=== PATIENT | female | born 1985 | race Caucasian/White ===

== ENCOUNTER 2016-05-05 21:05 | Emergency (ER) | payer MEDICAID ==
[~2016-05-05] VITALS: Ht 157.5 cm; Wt 72.6 kg
[2016-05-05 21:17] VITALS: BP 156/112
--- NOTE | 2016-05-05 21:25 | NUR ---
TO ER OF2
--- NOTE | 2016-05-05 21:27 | NUR ---
Patient being evaluated by physician.
--- NOTE | 2016-05-05 21:30 | NUR ---
30 YO FEMALE PATIENT PRESENTS TO ED WITH SINUS CONGESTION AND SORE THROAT. PT STATES HAD FOR 1 WEK. DENIES N/V/D; SKIN IS PINK/WARM/DRY; AAOX4 WITH EVEN AND STEADY GAIT; LUNGS CLEAR BL; HR EVEN AND REGULAR; PT DENIES ANY FEVER, CP, SOB, OR COUGH AT THIS TIME; PATIENT STATES PAIN OF 3/10 AT THIS TIME; VSS; PATIENT POSITIONED FOR COMFORT; HOB ELEVATED; BEDRAILS UP X2; BED DOWN. ER MD MADE AWARE OF PT STATUS.
[2016-05-05 21:38] VITALS: BP 138/88
--- NOTE | 2016-05-05 21:38 | NUR ---
Patient discharged with v/s stable. Written and verbal after care instructions given and explained. Patient alert, oriented and verbalized understanding of instructions. Ambulatory with steady gait. All questions addressed prior to discharge. ID band removed. Patient advised to follow up with PMD. Rx of given Azithromycin, Naproxen, and Guiafenesin AC. Patient educated on indication of medication including possible reaction and side effects. Opportunity to ask questions provided and answered.
== END 2016-05-05 21:38 | disposition home or self-care (01) ==
LOC: MED 21:20
DX: J01.90 Acute sinusitis, unspecified (principal)